=== PATIENT | male | born 1960 | race Caucasian/White ===

== ENCOUNTER → 2024-06-19 12:29 | Outpatient (REF) | payer BC, SELFPAY ==
--- NOTE | 2024-06-19 13:40 | CARDSERVLU ---
Echocardiogram with Lumason completed after protocol screening completed. Allergies verified.
Patent IV site: ____Rt AC_
IV site flushed with 0.9% NaCl pre and post administration.
Diluted bolus method utilized to enhance visualization of ventricular kramer.
Total volume given: 3.5 mL
Patient tolerated all procedures well without complications.
#22 kinjal placed Rt AC. Lumason given. INT d/c'd. pressure held. No bleeding noted.
== END ==
LOC: RCS 12:29
PROVIDERS: ATTENDING PHYSICIAN Nurse Practitioner; FAMILY PHYSICIAN Family Medicine
DX: R93.1 Abnormal findings on diagnostic imaging of heart and coronary circulation (principal)
CPT/HCPCS: 93307; Q9957

== ENCOUNTER → 2024-06-29 11:29 | Outpatient (REF) | payer BC, SELFPAY | LOC: DHCBC/DCA 11:29 | PROVIDERS: ATTENDING PHYSICIAN Internal Medicine Cardiovascular Disease; FAMILY PHYSICIAN Family Medicine | DX: I42.9 Cardiomyopathy, unspecified (principal) | CPT/HCPCS: 78452; 93017; A9500 ==

== ENCOUNTER → 2025-02-21 12:46 | Outpatient (REF) | payer OTHER, SELFPAY ==
--- NOTE | 2025-02-21 13:35 | CARDSERVLU ---
Echocardiogram with Lumason completed after protocol screening completed. Allergies verified.
Patent IV site: _Right metacarpal hand 22 G PC____
IV site flushed with 0.9% NaCl pre and post administration.
Diluted bolus method utilized to enhance visualization of ventricular kramer.
Total volume given: _3___ mL
Patient tolerated all procedures well without complications.
Heplock D/C ed at 1330, site clear, no redness, no edema. Pressure held, no bleeding, 2x2 applied and taped. Pt offers no complaints.
== END ==
LOC: RCS 12:46
PROVIDERS: ATTENDING PHYSICIAN Internal Medicine Cardiovascular Disease; FAMILY PHYSICIAN Family Medicine
DX: I42.8 Other cardiomyopathies (principal)
CPT/HCPCS: 93306; Q9950